=== PATIENT | male | born 1975 | race Caucasian/White ===

== ENCOUNTER → 2021-05-15 | Outpatient (CLI) | payer OTHER ==
[2021-05-16 05:07] LABS: RUBELLA AB IGG-REFLAB 4.47 index (Immune >0.99)
== END | disposition home or self-care (01) ==
LOC: LABMN 12:20
PROVIDERS: ATTEND Family Medicine
DX: Z11.3 Encounter for screening for infections with a predominantly sexual mode of transmission (principal); Z20.1 Contact with and (suspected) exposure to tuberculosis; Z20.89 Contact with and (suspected) exposure to other communicable diseases; Z20.828 Contact with and (suspected) exposure to other viral communicable diseases
CPT/HCPCS: 86480; 86592; 86706; 86735; 86762; 86765; 86787; 87340; 87491; 87591